=== PATIENT | male | born 1960 | race Caucasian/White ===

== ENCOUNTER 2024-08-12 23:40 | Emergency (ER) | payer OTHER ==
[~2024-08-12] VITALS: Ht 190.5 cm; Wt 104.1 kg
[~2024-08-12 23:40] MED LIST: ACETAMINOPHEN500 MG PO; FISH OIL 1,001000 MG PO; IBUPROFEN600 MG PO; MELATONIN1 M2 PO; MILK THISTLE150 MG PO; MULTIVITAMIN1 EACH PO; OXYCODON-ACETA1 EAC2 PO; PRILOSEC OTC20 MG PO
[2024-08-13] MEDS ORDERED: IBLOOD GLUCOSE TEST STRIP 1 EA TEST XX ONE (00:15)
[2024-08-13] MEDS ORDERED: LACTATED RINGER'S 1,000 ML IV ONE (00:30)
[2024-08-13 00:51] LABS: BASOPHILS 0.2 % (0-2); EOSINOPHILS 1.2 % (0-6); HEMATOCRIT 45.5 % (35.0-50.0); HEMOGLOBIN 15.7 g/dL (12.0-18.0); LYMPHOCYTES 14.5 % (24-44); MCHC 34.5 g/dl (30-36); MCV 92.6 fl (81-99); MONOCYTES 5.5 % (0-12); NEUTROPHILS 78.6 % (39-80); PLATELET COUNT 144 K/uL (140-440); RBC 4.92 M/ul (4.3-5.7)
[2024-08-13 01:05] LABS: ALBUMIN 4.3 g/dL (3.4-5.0); ALBUMIN/GLOBULIN RATIO 1.43 (1.1-2.4); ANION GAP 12.5 (7-21); BILIRUBIN, TOTAL 0.8 mg/dL (0.2-1.0); BUN/CREATININE RATIO 14.07 (6.0-28.6); CALCIUM 9.7 mg/dL (8.5-10.1); CREATININE, SERUM 1.35 mg/dL (0.70-1.30); MAGNESIUM 2.1 mg/dL (1.8-2.4); POTASSIUM 4.5 mmol/L (3.5-5.1); PROTEIN, TOTAL 7.3 g/dL (6.4-8.2)
[2024-08-13 01:31] LABS: INFLUENZA B NAA NEGATIVE (NEGATIVE); RESPIRATORY SYNCYTIAL VIR NAA NEGATIVE (NEGATIVE)
[2024-08-13 02:00] VITALS: BP 136/77
--- NOTE | 2024-08-13 17:39 | EKG ---
[facility] [address] [place], [place] [address] Signed Normal sinus rhythm Inferior infarct , age undetermined Cannot rule out Anterior infarct , age undetermined Abnormal ECG No previous ECGs available Confirmed by Hoang Rodriguez DO ([id number]) on 08/13/2024 5:38:44 PM Electronically Signed By: HOANG RODRIGUEZ DO 08/13/24 1739 PATIENT NAME: EANTIMO ParkRT RINALDI Electrocardiogram DATE OF : 58 PHYSICIAN: HOANG RODRIGUEZ DO REPORT #: [id number] REPORT IS CONFIDENTIAL AND NOT TO BE RELEASED WITHOUT AUTHORIZATION
== END 2024-08-13 02:00 | disposition home or self-care (01) ==
LOC: ED 23:40
PROVIDERS: Family Medicine
DX: R55 Syncope and collapse (principal); E86.0 Dehydration; Z79.899 Other long term (current) drug therapy
CPT/HCPCS: 36415; 80053; 83735; 84484; 85025; 87502; 93005; 93010; 99284; J7121; U0002